=== PATIENT | female | born 1950 | race Caucasian/White ===

== ENCOUNTER 2017-08-02 06:19 | Inpatient (IN) ==
--- NOTE | 2017-08-01 08:27 | Discharge Summary ---
<Sania Dickerson E - Last Filed: 08/01/17 08:24> Date of Encounter: 08/01/17 - Discharge Diagnosis (1) Status post total bilateral knee replacement Priority: Primary Status: Acute (2) Arthritis of both knees Priority: Primary Status: Chronic (3) HTN (hypertension) Priority: Secondary Status: Chronic Qualifiers: Hypertension type: unspecified Qualified Code(s): I10 - Essential (primary ) hypertension (4) Diabetes mellitus Priority: Secondary Status: Chronic Qualifiers: Diabetes mellitus type: type 2 Diabetes mellitus termite control service representative insulin use: with alf use Diabetes mellitus complication status: with neurologic complications Diabetes mellitus complication detail: with unspecified neuropathy Qualified Code(s): E11.40 - Type 2 diabetes mellitus with diabetic neuropathy, unspecified; Z79.4 - regional intermodal truck driver (current) use of insulin; Z79.4 - regional intermodal truck driver (current) use of insulin; Z79.4 - regional intermodal truck driver (current) use of insulin; Z79.4 - residential (current) use of insulin (5) JUAN JOSÉ (obstructive sleep apnea) Priority: Secondary Status: Chronic (6) CAD (coronary artery disease) Priority: Secondary Status: Chronic Qualifiers: Coronary Disease-Associated Artery/Lesion type: unspecified vessel or lesion type Associated angina: angina presence unspecified (7) Anxiety Priority: Secondary Status: Chronic (8) CHF (congestive heart failure) Priority: Secondary Status: Chronic Qualifiers: Heart failure type: unspecified Heart failure chronicity: unspecified Qualified Code(s): I50.9 - Heart failure, unspecified (9) Obesity Priority: Secondary Status: Chronic Qualifiers: Obesity type: unspecified obesity type Obesity classification: unspecified obesity classification Serious obesity comorbidity presence: unspecified whether serious comorbidity present Qualified Code(s): E66.9 - Obesity, unspecified - Hospital Course Hospital course: Ms. Holly is a 67 year old female - Time Spent with Patient Total time spent providing and/or coordinating discharge services: - Discharge Medications Home Medications: Losartan/Hydrochlorothiazide [Hyzaar 100-12.5 Tablet] 1 tab PO DAILY 08/11/15 [ History] Metformin HCl [Metformin HCl ER] 1,000 mg PO BID 08/11/15 [History] Potassium Chloride [K-Tab ER] 20 meq PO Q48H 08/11/15 [History] Aspirin Enteric Coated [Aspirin EC] 325 mg PO BID 10 Days #20 tablet. [Rx] OxyCODONE Immed Rel [Roxicodone 5 MG] 5 mg PO Q6HR PRN 7 Days #28 tablet [Rx] ALPRAZolam [Xanax 0.5 MG Tablet] 0.25 - 0.5 mg PO BID PRN 08/02/17 [History] Aspirin 81 mg PO QPM 08/02/17 [History] Carvedilol 37.5 mg PO BID 08/02/17 [History] Escitalopram [Lexapro] 10 mg PO DAILY 08/02/17 [History] Insulin NPH Hum/Reg Insulin Hm [Novolin 70-30 100 Unit/ml Vial] 28 unit IJ QAM 08/02/17 [History] Insulin NPH Hum/Reg Insulin Hm [Novolin 70-30 100 Unit/ml Vial] 48 units IJ QPM 08/02/17 [History] Mv-Mn/FA/Vit K/Lycop/Lut/Coq10 [Daily Multivitamin Capsule] 1 tab PO DAILY 08/02 [History] Rosuvastatin Calcium [Crestor] 20 mg PO Q48H 08/02/17 [History] Spironolactone [Aldactone] 25 mg PO QAM 08/02/17 [History] Allergies/Adverse Reactions: 3 Allergy/AdvReac Type Severity Reaction Status Date / Time atorvastatin Allergy Cramping Verified 08/02/17 06:40 of the Muscles latex Allergy Rash Verified 08/02/17 06:40 simvastatin Allergy Cramping Verified 08/02/17 06:40 of the Muscles Primary care physician: Robin Easley DO - Patient Status Disposition: Transfer Inpatient Rehab Fac Condition: Good - Discharge Instructions Instructions: Total Knee Replacement (DC), Anemia (GEN) Follow Up With: Robin Easley DO [Primary Care Provider] - <Victor Hugo Alexandra - Last Filed: 08/06/17 19:19> Orders not resulted at time of discharge: Pending orders 08/02/17 01:00 XR knee LT limited 1-2V [XR] Routine XR knee RT limited 1-2V [XR] Routine Hemoglobin and Hematocrit [HEME] Routine Date of Encounter: 08/06/17 Time of Encounter: 19:18 - Discharge Diagnosis (1) Type 2 diabetes mellitus Priority: Secondary Status: Chronic Qualifiers: Diabetes mellitus complication status: with unspecified complications Qualified Code(s): E11.8 - Type 2 diabetes mellitus with unspecified complications; Z79.4 - residential (current) use of insulin; Z79.4 - regional intermodal truck driver ( current) use of insulin; Z79.4 - residential (current) use of insulin; Z79.4 - regional intermodal truck driver (current) use of insulin (2) Hypertension Priority: Secondary Status: Chronic Qualifiers: Hypertension type: essential hypertension (3) Obstructive sleep apnea Priority: Secondary Status: Chronic (4) Arthritis of both knees Priority: Primary Status: Chronic (5) Status post total bilateral knee replacement Priority: Primary Status: Acute (6) CAD (coronary artery disease) Priority: Secondary Status: Chronic Qualifiers: Coronary Disease-Associated Artery/Lesion type: unspecified vessel or lesion type Associated angina: angina presence unspecified Qualified Code(s): I25.10 - Atherosclerotic heart disease of [place] coronary artery without angina pectoris (7) Morbid obesity with BMI of 45.0-49.9, adult Status: Acute (8) Acute combined systolic and diastolic heart failure Priority: Secondary Status: Chronic (9) Diabetic neuropathy Priority: Secondary Status: Chronic Qualifiers: Diabetes mellitus type: other specified (including BHANU) Diabetes mellitus complication detail: with other neurological complication Qualified Code(s): E13.49 - Other specified diabetes mellitus with other diabetic neurological complication (10) Acute blood loss anemia Priority: Primary Status: Acute (11) Acute kidney injury Priority: Primary Status: Acute - Hospital Course Hospital course: Ms. Holly is a 67 year old female Patient status post bilateral total knee replacements. Patient with acute blood loss anemia received 2 units of blood, patient with acute kidney injury hospitalist consult. They received antibiotics and physical therapy and were discharged in stable condition. There will follow-up in the office in 2 weeks. - Time Spent with Patient Total time spent providing and/or coordinating discharge services: Primary care physician: Robin Easley DO - Patient Status Functional capacity at discharge: uses cane/walker Overall status at discharge: patient is progressing back to baseline
--- NOTE | 2017-08-02 06:20 | History & Physical Report ---
Date of Encounter: 08/02/17 Time of Encounter: 06:19 24 Hour HP Update - Instructions Instructions: If the History and Physical is less than 30 days old and was completed prior to A.M. admission and or procedure and has NOT been updated on calendar day of procedure please complete this update prior to performing procedure. - Update Patient reports changes in Medical Condition: No Changes in examination, assessment, or condition: No Changes in Medication: No Preop tests/diagnostics Reviewed: Yes Surgery Remains Indicated: Yes Consent for Planned Operative Procedure(s) Verified: Yes - Pre-Operative Checklist Preoperative Checklist Indicated: No Prophylactic Antibiotic Ordered: Yes Is VTE Prophylaxis Indicated?: Yes
[2017-08-02] MEDS ORDERED: Lidocaine -MPF 1% 2 ML VIAL ID ONE (06:48)
[2017-08-02] MEDS ORDERED: CeFAZolin Syr 2,000MG/20 ML 2,000 MG/20 ML SYRINGE IVPB ONE (06:48)
[2017-08-02] MEDS ORDERED: Ringers Solution, Lactated 1,000 ML IVC SCH (07:00)
[2017-08-02] MEDS ORDERED: Gabapentin 300 MG CAPSULE PO ONE (07:01)
[2017-08-02] MEDS ORDERED: Famotidine 20 MG/2 ML VIAL IVP ONE (07:02)
[2017-08-02] MEDS ORDERED: Ethanol\\Acetic Acid\\Na Ace\\Ben 1,000 ML IRRIG.SOLN IR ONE ×2 (07:09→07:27)
--- NOTE | 2017-08-02 07:13 | Anesthesia Evaluation PreOp ---
Date of Encounter: 08/02/17 Time of Encounter: 07:00 - Past History Planned Operation: Bilateral TKA Cardiac History: HTN, Hyperlipidemia, Other (CAD) Pulmonary History: JUAN JOSÉ Dx (CPAP 19) WOODS RIDER History: Denies Any Significant HX Other Medical History: Diabetes Type II, Other (Morbid Obesity) Anesthesia History: No Prior Anesthetic Complications : No Alcohol Use: none Drug use: none Medications and Allergies Losartan/Hydrochlorothiazide [Hyzaar 100-12.5 Tablet] 1 tab PO DAILY 08/11/15 [ History] Metformin HCl [Metformin HCl ER] 1,000 mg PO BID 08/11/15 [History] Potassium Chloride [K-Tab ER] 20 meq PO Q48H 08/11/15 [History] Aspirin Enteric Coated [Aspirin EC] 325 mg PO BID 10 Days #20 tablet. [Rx] OxyCODONE Immed Rel [Roxicodone 5 MG] 5 mg PO Q6HR PRN 7 Days #28 tablet [Rx] ALPRAZolam [Xanax 0.5 MG Tablet] 0.25 - 0.5 mg PO BID PRN 08/02/17 [History] Aspirin 81 mg PO QPM 08/02/17 [History] Carvedilol [Carvedilol] 37.5 mg PO BID 08/02/17 [History] Escitalopram [Lexapro] 10 mg PO DAILY 08/02/17 [History] Insulin NPH Hum/Reg Insulin Hm [Novolin 70-30 100 Unit/ml Vial] 28 unit IJ QAM 08/02/17 [History] Insulin NPH Hum/Reg Insulin Hm [Novolin 70-30 100 Unit/ml Vial] 48 units IJ QPM 08/02/17 [History] Mv-Mn/FA/Vit K/Lycop/Lut/Coq10 [Daily Multivitamin Capsule] 1 tab PO DAILY 08/02 [History] Rosuvastatin Calcium [Crestor] 20 mg PO Q48H 08/02/17 [History] Spironolactone [Aldactone] 25 mg PO QAM 08/02/17 [History] 3 Allergy/AdvReac Type Severity Reaction Status Date / Time atorvastatin Allergy Cramping Verified 08/02/17 06:40 of the Muscles latex Allergy Rash Verified 08/02/17 06:40 simvastatin Allergy Cramping Verified 08/02/17 06:40 of the Muscles - Meds/Allergy Pre-op Review Medications Reviewed: Yes Allergies Reviewed: Yes Beta Blockers on Current Med List: Yes (Coreg today 0515) Anesthesia Results - Labs Laboratory Tests 07/19/17 07/19/17 11:56 11:56 Hgb 13.0 Hct 40.6 Sodium 139 Potassium 4.4 BUN 20 Creatinine 1.26 H - Imaging EKG: report reviewed (SR Left BBB) Additional studies: EF 55% Anesthesia Exam O2 Sat Height 1.6 m Height 1.6 m Height 1.6 m Weight 117.48 kg Weight 117.48 kg Weight 117.48 kg O2 Sat by Pulse Oximetry 96 O2 Sat by Pulse Oximetry 96 Vital Signs Temp Pulse Resp BP Pulse Ox 98.0 F 65 18 143/77 96 08/02/17 06:43 08/02/17 06:43 08/02/17 06:43 08/02/17 06:43 08/02/17 06:43 Height: 5'3 Weight: 259 lbs NPO (# of Hours): MN Pain Scale: 0 - HEENT Pupil (Motor): Pupils equal, EOMI Mallampati: III Teeth: Normal Oral Opening: Less than or equal to 3 - WOODS RIDER LOC: Oriented WOODS RIDER Motor: Normal RUE, Normal LUE, Normal RLE, Normal LLE, Normal Face WOODS RIDER Sensory: Normal: RUE, LUE, RLE, LLE, Face - Cardiac Rhythm: Regular Murmur: None JVD: No Carotid Bruit: No - Pulmonary Breath Sounds: bilateral Clear Respiratory Effort: Symmetrical Anesthesia Assess/Plan ASA Score: 3 (CAD HTN JUAN JOSÉ MO DM) Modified Caesar Scale for Level of Consciousness: Cooperative, oriented, and tranquil Anesthetic Plan: Regional, MAC Monitoring Plan: Standard Monitors Recovery Plan: PACU (Discussed SAB with Adductor Canal Block, MAC, possible GA, agrees to proceed)
[2017-08-02] MEDS ORDERED: *HR* Propofol 200 MG/20 ML VIAL IVP ONE (07:16)
[2017-08-02] MEDS ORDERED: Dexamethasone 4 MG/ML VIAL ONE ×2 (07:16→07:19)
[2017-08-02] MEDS ORDERED: *HR* Midazolam HCl 2 MG/2 ML VIAL ONE (07:16)
[2017-08-02] MEDS ORDERED: Ondansetron 4 MG/2 ML VIAL ONE (07:16)
[2017-08-02] MEDS ORDERED: Lidocaine -MPF 2% 2 ML VIAL ONE ×3 (07:16→09:27)
[2017-08-02] MEDS ORDERED: *HR* FentaNYL (PF) 100 MCG/2 ML VIAL ONE ×2 (07:16→08:53)
[2017-08-02] MEDS ORDERED: *HR* Succinylcholine 200 MG/10 ML VIAL IVP ONE (07:16)
[2017-08-02] MEDS ORDERED: Propofol 500 MG/50 ML INFUS..BTL ONE (07:19)
[2017-08-02] MEDS ORDERED: ROPIVACAINE HCL/PF 0.5% 30 ML VIAL ONE (07:21)
[2017-08-02] MEDS ORDERED: Morphine Sulfate/PF 5mg/10mL Vial ONE (07:21)
[2017-08-02] MEDS ORDERED: Dexmedetomidine HCl 200 MCG/50 ML MLS IVC ONE (07:22)
[2017-08-02] MEDS ORDERED: *HR* PHENYLEPHRINE 1,000 MCG/10 ML SYRINGE IVP ONE (08:06)
[2017-08-02] MEDS ORDERED: *HR* Promethazine 25 MG/ML VIAL IVP PRN (08:29)
--- NOTE | 2017-08-02 09:34 | Orthopedic Operative Note ---
Date of procedure: 08/02/17 Pre-op diagnosis: Bilateral knee arthritis Post-op diagnosis: same Procedure: Procedure: Bilateral robotic-assisted Total knee replacement Estimated blood loss: 98416 cc Hardware: Metal and polyethylene replacement. Sycamore Femur: 3 Tibia: 4 TS insert: 11 Patella: 36 Exam Under anesthesia: Left knee 9 degree flexion contracture 11 degree varus, right knee 0 degree extension 9 degree varus as calculated by the robot full flexion and no instability Procedural Notes: Grade 4 4 arthritic changes medial compartment patellofemoral joint. Operative procedure: The patient was brought to the operating room and placed on the operating room table. After general anesthesia was administered the operative knee was examined. Findings were noted in the exam under anesthesia. The operative extremity was prepped and draped in sterile surgical fashion. The patient received IV antibiotics prior to skin incision. The next is the dictation for both knees any differences will be highlighted surgery began with the left knee followed the right knee. A standard midline incision was made centered over the patella. The incision was made through the skin and subcutaneous tissue. A medial parapatellar tendon approach was performed. Care was taken to preserve tissue along the medial aspect of the patella. And to protect the patella tendon. The deep MCL was released off the medial tibia. The infra patella fat pad was excised. The patella was everted and cut was made at the level of the insertion of the quadriceps and patella tendon. The patella was sized to a 36 the guide was seated and the lug holes are drilled. Knee was brought into flexion. Patient noted to have grade 4 arthritic changes in both knees medial compartment and patellofemoral joint. Steinmann pins were placed in the tibia and the femur for the tibial and femoral arrays respectively. Checkpoints were also placed in the tibia and the femur for calculation purposes. The knee including the femur and the tibial registered. Osteophytes, ACL and PCL were excised at this point. Extension and flexion were assessed with a valgus stress components were adjusted on the computer to balance the knee. Femoral cuts were made first with robotic assistance, these included the anterior cut posterior cuts chamfer cuts. Tibial cut was then performed with robotic assistance as well. Bone fragments were removed, as well as the medial and lateral meniscus. The size 3 femoral guide was seated box cut was made lug holes are drilled. The size 4 tibial tray was seated and prepared with the fin cutter. Trial reduction with the 11 TS Yvonne revealed extension of 0 degree and 5 degree varus in both knees. full flexion. No varus valgus instability. Trial reduction revealed excellent patella tracking. All trial components were removed all bony surfaces were irrigated. The Tibia was seated followed by the femur, The Yvonne size 11 was seated and secured patella. Patient had similar findings for motion and stability. The knee was closed by the PA. The knee was then irrigated out with 2 L of pulse irrigation. The extensor mechanism was closed with #2 FiberWire suture and #2 PDS suture. The subcutaneous tissue was then irrigated and closed deep with #1 PDS suture superficially with 0 PDS suture and skin was closed with zip tie The patient was then placed in a sterile dressing and a postoperative brace extubated and transferred to recovery room in stable condition. Anesthesia: GETA Surgeon: Victor Hugo Alexandra Was there an radiology assistant present: Yes Umbrella Frame Maker: Virginia Oneil Estimated blood loss (cc): 300 Condition: stable Disposition: PACU
[2017-08-02] MEDS ORDERED: *HR* Morphine 10 MG/ML VIAL ONE (09:43)
--- NOTE | 2017-08-02 09:53 | Anesthesia Procedures ---
Date of Encounter: 08/02/17 Time of Encounter: 10:10 Procedures: Anesthesia - Nerve Block Procedure Date: 08/02/17 Time: 10:10 Allergies/Adv Reactions: atorvastatin, ltex,simvastatin Pre-op Diagnosis: bilateral knee arthritis Surgical Procedure: bilateral knee replacement Checklist: Correct Patient Identifier, Correct procedure, History checked Correct side: Right (bilateral knees -CANNOT SELECT BILATERAL COMPUTER WONT ALLOW) Blood Thinner: No Monitor Applied: EKG, BP, Pulse Oximetry Supplemental Oxygen via Nasal Cannula (L/min): 2 Sedation: Versed (mg): 2 Sedation: Fentanyl (mcg): 100 Indication: Post Op Analgesia Pre-op Neuro Deficits: No Block Type: Other (ADDUCTORS BILATERALLY ) Catheter placed: No Sterile Technique: Yes Ultrasound used: Yes Anatomy identified: Yes Visual spread of Local: Yes Neuro Stimulation: No Blood on Needle Aspiration: No Smooth Injection of Local: Yes Pain with Injection of Local: No Prep: Chlorhexadine Needle: 21 x 100 mm Stimuplex Local: Ropivacaine (ROPI0.5% BILATERALLY ADDUCTOR CANALS -TOTAL 60ML ) Volume (cc): 60 Number of Attempts: 1 Complications: None/effective block Vitals: Vital Signs - Last 8 Hours Temp Pulse Resp BP Pulse Ox 08/02/17 07:28 68 18 186/98 100 08/02/17 06:50 98.0 F 65 18 143/77 96 08/02/17 06:43 98.0 F 65 18 143/77 96 Intake and Output 08/01/17 08/02/17 08/02/17 23:59 07:59 15:59 Other: Weight 117.48 kg Blood Glucose* 76 Patient Weight 08/02/17 23:59 Weight 117.48 kg Comments: PER DR. PEREZ REQUEST
[2017-08-02 10:52] LABS: Hematocrit 34.7 % (35.3-44.9); Hemoglobin 11.2 g/dL (11.5-15.4)
[2017-08-02] MEDS: *HR* HYDROmorphone (PF) 1 MG/ML SYRINGE IVP PRN ×4 (10:54→11:26)
--- NOTE | 2017-08-02 11:42 | Anesthesia Evaluation Post Op ---
Date of Encounter: 08/02/17 Time of Encounter: 11:41 - Vital Signs Vital Signs: Vital Signs/O2 Sat, Most Current Temp Pulse Resp BP Pulse Ox 97.0 F L 69 18 120/86 94 08/02/17 11:23 08/02/17 11:33 08/02/17 11:33 08/02/17 11:33 08/02/17 11:33 - Lungs Lungs: Clear Ascult./Percussion - Airway Airway: Non-obstructed - Cardiovascular Regular Rate - Mental Status Mental Status: Alert & Oriented, Answers Appropriately - Pain Pain Scale: 0 Pain Scale used: Numeric (1 - 10) - Nausea Vomiting Nausea Vomiting: Not Present - Hydration Hydration: Ice chips, Has not voided - Discharge PostOp Status: Transfer Patient to floor
[2017-08-02] MEDS ORDERED: D5% in Water 1,000 ML IVC PRN (11:48)
[2017-08-02] MEDS ORDERED: Temazepam 15 MG CAPSULE PO PRN (11:48)
[2017-08-02] MEDS ORDERED: Dextrose Gel 15 GM/37.5 ML TUBE PO PRN ×2 (11:48)
[2017-08-02] MEDS ORDERED: NON-FORMULARY MEDICATION 1 EACH EACH (Losartan/Hydrochlorothiazide [Hyzaar 100-12.5 Tablet PO SCH (11:48)
[2017-08-02] MEDS ORDERED: *HR* Dextrose 50 % in Water (Syg) 50 ML SYRINGE IVP PRN (11:48)
[2017-08-02] MEDS ORDERED: ALPRAZolam 0.5 MG TABLET PO PRN (11:48)
[2017-08-02] MEDS ORDERED: Sennosides 8.6 MG TABLET PO PRN (11:48)
[2017-08-02] MEDS ORDERED: Naloxone 0.4 MG/ML INJ IVP PRN (11:48)
[2017-08-02] MEDS ORDERED: Ondansetron 4 MG/2 ML VIAL IVP PRN (11:48)
[2017-08-02] MEDS ORDERED: MOM Conc 10 ML UD.LIQ PO PRN (11:48)
[2017-08-02] MEDS: Spironolactone 25 MG TABLET PO SCH (13:34)
[2017-08-02] MEDS: Insulin NPH/REG 70/30 100 UNIT/ML (x5UNIT) SQ SCH ×2 (13:35→17:22)
[2017-08-02] MEDS: *HR* Metformin 500 MG TABLET PO SCH ×2 (13:36→21:43)
[2017-08-02] MEDS: Insulin LISPRO 300 UNITS/3 ML VIAL SQ SCH ×3 (13:36→21:43)
[2017-08-02] MEDS: Multivit/Ca/Min/Fe/FA 1 TAB TABLET PO SCH (13:36)
[2017-08-02] MEDS: hydroCHLOROthiazide 25 MG TABLET PO SCH (13:36)
[2017-08-02] MEDS: *HR* Enoxaparin 30 MG/0.3 ML SYRINGE SQ SCH (16:06)
[2017-08-02] MEDS: ceFAZolin 2,000 MG in 0.9 % Sodium Chloride 100 ML IVPB SCH (16:06)
[2017-08-02] MEDS: *HR* OxyCODONE/APAP 5/325 TABLET PO PRN (16:06)
[2017-08-02] MEDS: Aspirin 81 MG TAB.CHEW PO SCH (16:06)
[2017-08-02] MEDS ORDERED: *HR* Enoxaparin 30 MG/0.3 ML SYRINGE SQ SCH (18:00)
[2017-08-02] MEDS: traMADol 50 MG TABLET PO PRN (18:22)
[2017-08-02] MEDS: Ringers Solution, Lactated 1,000 ML IVC SCH (18:38)
[2017-08-02] MEDS: *HR* OxyCODONE Immed Rel 5 MG TABLET PO PRN (21:42)
[2017-08-03] MEDS: ceFAZolin 2,000 MG in 0.9 % Sodium Chloride 100 ML IVPB SCH (01:02)
[2017-08-03] MEDS: *HR* OxyCODONE/APAP 5/325 TABLET PO PRN ×3 (01:02→13:58)
[2017-08-03 01:49] LABS: Hematocrit 31.9 % (35.3-44.9); Hemoglobin 10.2 g/dL (11.5-15.4)
[2017-08-03] MEDS: Ringers Solution, Lactated 1,000 ML IVC SCH (02:00)
[2017-08-03 02:08] LABS: Calcium 8.7 mg/dL (8.6-10.3); Potassium 5.5 mEq/L (3.5-5.1)
[2017-08-03] MEDS: *HR* Enoxaparin 30 MG/0.3 ML SYRINGE SQ SCH ×2 (05:02→17:06)
--- NOTE | 2017-08-03 06:20 | Orthopedics Progress Note ---
Date of Encounter: 08/03/17 Time of Encounter: 06:19 - Assessment and Plan (1) Type 2 diabetes mellitus Current Visit: No Status: Chronic Qualifiers: Diabetes mellitus complication status: with unspecified complications Qualified Code(s): E11.8 - Type 2 diabetes mellitus with unspecified complications; Z79.4 - intermediate school teacher (current) use of insulin; Z79.4 - intermediate school teacher ( current) use of insulin; Z79.4 - intermediate school teacher (current) use of insulin; Z79.4 - intermediate school teacher (current) use of insulin (2) Obstructive sleep apnea Current Visit: No Status: Chronic (3) Arthritis of both knees Current Visit: No Status: Chronic (4) Status post total bilateral knee replacement Current Visit: No Status: Acute (5) CAD (coronary artery disease) Current Visit: No Status: Chronic Qualifiers: Coronary Disease-Associated Artery/Lesion type: unspecified vessel or lesion type Associated angina: angina presence unspecified Qualified Code(s): I25.10 - Atherosclerotic heart disease of [place] coronary artery without angina pectoris (6) Morbid obesity with BMI of 45.0-49.9, adult Current Visit: Yes Status: Acute (7) Acute combined systolic and diastolic heart failure Current Visit: No Status: Chronic (8) Diabetic neuropathy Current Visit: No Status: Chronic Qualifiers: Diabetes mellitus type: other specified (including BHANU) Diabetes mellitus complication detail: with other neurological complication Qualified Code(s): E13.49 - Other specified diabetes mellitus with other diabetic neurological complication Subjective Interval history: Patient was seen this morning doing well without complaints. Afebrile vital signs stable. Operative extremity: Neurovascularly intact Dressing clean dry and intact Calves nontender Assessment and plan: Continue with postoperative care Hematocrit 31 Objective Vital signs: Vital Signs Temp Pulse Resp BP Pulse Ox 08/03/17 04:58 97.6 F 72 20 119/54 96 08/02/17 23:53 97.9 F 74 16 131/64 100 08/02/17 18:49 97.8 F 75 16 108/65 98 08/02/17 15:09 97.2 F L 71 16 112/69 99 08/02/17 13:52 97.4 F L 67 16 120/66 97 08/02/17 12:54 97.2 F L 72 16 128/73 96 08/02/17 12:28 97.5 F L 74 16 127/71 93 08/02/17 11:48 97.7 F 72 15 138/74 95 08/02/17 11:43 97.0 F L 64 18 120/84 94 08/02/17 11:33 69 18 120/86 94 08/02/17 11:23 97.0 F L 66 18 101/91 98 08/02/17 11:13 61 18 118/69 98 08/02/17 11:03 63 16 116/67 97 08/02/17 10:53 97.3 F L 62 16 109/70 98 08/02/17 10:43 60 16 112/71 96 08/02/17 10:33 63 16 102/64 100 08/02/17 10:23 97.0 F L 61 18 118/64 98 08/02/17 07:28 68 18 186/98 100 08/02/17 06:50 98.0 F 65 18 143/77 96 08/02/17 06:43 98.0 F 65 18 143/77 96 Intake and Output 08/02/17 08/02/17 08/03/17 15:59 23:59 07:59 Intake Total 0 / 0 100 / 100 Output Total 300 / 300 200 / 200 100 / 100 Balance -300 / -300 -100 / -100 -100 / -100 Intake: IV Fluids 100 / 100 Ancef 2,000 MG In 0.9 % Sodium 100 / 100 Chloride 100 ML @ 200 mls/hr IVPB Q8H [facility] Rx#:[id number] Oral 0 / 0 0 / 0 Output: Urine 0 / 0 200 / 200 100 / 100 Estimated Blood Loss 300 / 300 Other: # Voids 1 Blood Glucose* 109 243 - Labs CBC & BMP: 08/03/17 01:27 08/03/17 01:27 Labs: Abnormal lab results Hgb 10.2 g/dL (11.5-15.4) L 08/03/17 01:27 Hct 31.9 % (35.3-44.9) L 08/03/17 01:27 Sodium 135 mEq/L (136-145) L 08/03/17 01:27 Potassium 5.5 mEq/L (3.5-5.1) H 08/03/17 01:27 Carbon Dioxide 21 mEq/L (23-29) L 08/03/17 01:27 BUN 39 mg/dL (8-23) H 08/03/17 01:27 Creatinine 1.66 mg/dL (0.60-1.20) H 08/03/17 01:27 Est GFR ( Amer) 37 (> 60) L 08/03/17 01:27 Est GFR (Non-Af Amer) 31 (> 60) L 08/03/17 01:27 Glucose 206 mg/dL (70-105) H 08/03/17 01:27 POC Glucose 243 mg/dL (70-99) H 08/02/17 20:20 - VTE Documentation of Mechanical Device: Intermittent pneumatic compression device Consult Discharge Plan - Plan Referrals: Robin Easley DO [Primary Care Provider] -
[2017-08-03] MEDS: *HR* Metformin 500 MG TABLET PO SCH ×2 (08:15→19:49)
[2017-08-03] MEDS: traMADol 50 MG TABLET PO PRN (08:15)
[2017-08-03] MEDS: Spironolactone 25 MG TABLET PO SCH (08:16)
[2017-08-03] MEDS: Multivit/Ca/Min/Fe/FA 1 TAB TABLET PO SCH (08:16)
[2017-08-03] MEDS: hydroCHLOROthiazide 25 MG TABLET PO SCH (08:16)
[2017-08-03] MEDS: Insulin LISPRO 300 UNITS/3 ML VIAL SQ SCH ×4 (08:23→20:08)
[2017-08-03] MEDS: Insulin NPH/REG 70/30 100 UNIT/ML (x5UNIT) SQ SCH ×2 (08:23→17:06)
[2017-08-03] MEDS: Aspirin 81 MG TAB.CHEW PO SCH (17:06)
[2017-08-03] MEDS ORDERED: Acetaminophen IV 1,000 MG/100 ML INFUS..BTL IVPB ONE (19:02)
[2017-08-03] MEDS: *HR* OxyCODONE Immed Rel 5 MG TABLET PO PRN (19:48)
[2017-08-04 01:23] LABS: Hemoglobin 8.3 g/dL (11.5-15.4)
[2017-08-04 01:41] LABS: Calcium 8.7 mg/dL (8.6-10.3); Potassium 4.3 mEq/L (3.5-5.1)
[2017-08-04] MEDS: *HR* Enoxaparin 30 MG/0.3 ML SYRINGE SQ SCH (05:37)
[2017-08-04] MEDS ORDERED: Furosemide 20 MG/2 ML VIAL IVP ONE ×3 (05:51→21:35)
[2017-08-04] MEDS: *HR* OxyCODONE Immed Rel 5 MG TABLET PO PRN ×3 (06:03→17:48)
[2017-08-04] MEDS: Insulin LISPRO 300 UNITS/3 ML VIAL SQ SCH ×4 (07:39→21:17)
--- NOTE | 2017-08-04 08:05 | Orthopedics Progress Note ---
Date of Encounter: 08/04/17 Time of Encounter: 08:03 - Assessment and Plan (1) Type 2 diabetes mellitus Current Visit: No Status: Chronic Qualifiers: Diabetes mellitus complication status: with unspecified complications Qualified Code(s): E11.8 - Type 2 diabetes mellitus with unspecified complications; Z79.4 - termite exterminator helper (current) use of insulin; Z79.4 - termite exterminator helper ( current) use of insulin; Z79.4 - termite exterminator helper (current) use of insulin; Z79.4 - termite exterminator helper (current) use of insulin (2) Obstructive sleep apnea Current Visit: No Status: Chronic (3) Arthritis of both knees Current Visit: No Status: Chronic (4) Status post total bilateral knee replacement Current Visit: No Status: Acute (5) CAD (coronary artery disease) Current Visit: No Status: Chronic Qualifiers: Coronary Disease-Associated Artery/Lesion type: unspecified vessel or lesion type Associated angina: angina presence unspecified Qualified Code(s): I25.10 - Atherosclerotic heart disease of [place] coronary artery without angina pectoris (6) Morbid obesity with BMI of 45.0-49.9, adult Current Visit: Yes Status: Acute (7) Acute combined systolic and diastolic heart failure Current Visit: No Status: Chronic (8) Diabetic neuropathy Current Visit: No Status: Chronic Qualifiers: Diabetes mellitus type: other specified (including BHANU) Diabetes mellitus complication detail: with other neurological complication Qualified Code(s): E13.49 - Other specified diabetes mellitus with other diabetic neurological complication (9) Acute blood loss anemia Current Visit: Yes Status: Acute (10) Acute kidney injury Current Visit: Yes Status: Acute Subjective Interval history: Patient was seen this morning doing well without complaints. Afebrile vital signs stable. Operative extremity: Neurovascularly intact Dressing clean dry and intact Calves nontender Assessment and plan: Continue with postoperative care Hematocrit 25, creatinine 2.39 transfuse 2 units consult hospitalist. For kidney issues Objective Vital signs: Vital Signs Temp Pulse Resp BP Pulse Ox 08/04/17 06:52 98 F 87 18 119/67 98 08/04/17 04:16 98.0 F 83 18 115/70 96 08/03/17 23:14 97.9 F 86 18 104/64 94 08/03/17 18:59 98.5 F 78 16 111/66 95 08/03/17 15:39 98.3 F 74 20 99/61 93 08/03/17 11:10 97.9 F 73 18 107/66 93 Intake and Output 08/03/17 08/04/17 08/04/17 23:59 07:59 15:59 Other: # Voids 1 Blood Glucose* 163 106 - Labs CBC & BMP: 08/04/17 00:54 08/04/17 00:54 Labs: Abnormal lab results Hgb 8.3 g/dL (11.5-15.4) L D 08/04/17 00:54 Hct 26.0 % (35.3-44.9) L 08/04/17 00:54 Sodium 135 mEq/L (136-145) L 08/04/17 00:54 BUN 58 mg/dL (8-23) H 08/04/17 00:54 Creatinine 2.39 mg/dL (0.60-1.20) H 08/04/17 00:54 Est GFR ( Amer) 24 (> 60) L 08/04/17 00:54 Est GFR (Non-Af Amer) 20 (> 60) L 08/04/17 00:54 POC Glucose 163 mg/dL (70-99) H 08/03/17 20:07 - VTE Documentation of Mechanical Device: Venous foot pump, device Consult Discharge Plan - Plan Referrals: Robin Easley DO [Primary Care Provider] -
[2017-08-04] MEDS: Multivit/Ca/Min/Fe/FA 1 TAB TABLET PO SCH (08:44)
[2017-08-04] MEDS: *HR* Metformin 500 MG TABLET PO SCH (08:44)
[2017-08-04] MEDS: Spironolactone 25 MG TABLET PO SCH (08:44)
[2017-08-04] MEDS: Insulin NPH/REG 70/30 100 UNIT/ML (x5UNIT) SQ SCH ×2 (08:45→16:21)
[2017-08-04] MEDS: hydroCHLOROthiazide 25 MG TABLET PO SCH (08:45)
[2017-08-04] MEDS ORDERED: 0.9 % Sodium Chloride 250 ML ONE ×2 (09:22→15:49)
[2017-08-04 15:21] LABS: Calcium 8.8 mg/dL (8.6-10.3); Potassium 4.9 mEq/L (3.5-5.1)
[2017-08-04] MEDS: Aspirin 81 MG TAB.CHEW PO SCH (16:21)
--- NOTE | 2017-08-04 20:01 | Internal Medicine Consult Note ---
<Donell Wilburn - Last Filed: 08/04/17 19:56> Date of Encounter: 08/04/17 Time of Encounter: 19:57 - Assessment and plan (1) Acute blood loss anemia Current Visit: Yes Status: Acute Assessment and plan: Acute blood loss anemia S/P bilateral total knee replacements Today's H&H 8.3/26.0. Receiving 2 units packed red cells now CBC D in the morning Okay to discharge if hemodynamically stable and hemoglobin and hematocrit stable (2) Acute kidney injury Current Visit: Yes Status: Acute Assessment and plan: The patient developed an acute kidney injury status post bilateral total knee replacement on 08/02/17 She has had difficulty voiding following the surgery. Hospitalist services consulted to help manage care due acute kidney injury. Serum creatinine has improved following catheterization, patient reports that she has urinated since being catheterized Continue monitor renal function, BMP in the a.m. Avoid nephrotoxins Continue IV fluid Okay to discharge if serum creatinine continues to improve Continue to hold medications upon discharge, recheck serum creatinine while at rehabilitation facility, when serum creatinine returns to baseline okay to restart diuretics and Cozaar - Time Spent With Patient Total time spent is greater than 50% in coordination of care (as documented) at patient's floor/unit and/or counseling patient: less than 15 minutes Internal Medicine - CN: HPI - Data of Consult Patient: new to practice (t) Consult date: 08/04/17 Requesting Physician: Victor Hugo Alexandra MD - Consult Narrative Reason for consult: WINTER History of present illness: Ms. Holly is a 67 year old female here for total bilateral knee replacement. During her stay she had difficulty voiding and developed an WINTER. Additionally, she is also noted to have anemia postoperatively. Hospitalist services have been consult to assist with WINTER, and anemia and to determine when to restart nephrotoxic medications. Past Med Surg Social Fam HX - Past Medical History Medical history: CHF, hypertension Psychiatric history: no psych history - Social History Smoking Status: Never smoker Smokeless Tobacco Status: No Alcohol use: none Drug use: none - Family History Father Living Status: Hx Family Cardiac Disorders: Yes (HTN) - Cardiovascular Cardiovascular ROS IM: no chest pain, no dyspnea, no dyspnea on exertion, no edema - Respiratory Respiratory: no dyspnea, no dyspnea on exertion - Musculoskeletal Musculoskeletal ROS IM: limited range of motion (Status post bilateral total knee replacements), muscle weakness, no numbness, no tingling Internal Medicine - CN: Meds Losartan/Hydrochlorothiazide [Hyzaar 100-12.5 Tablet] 1 tab PO DAILY 08/11/15 [ History] Metformin HCl [Metformin HCl ER] 1,000 mg PO BID 08/11/15 [History] Potassium Chloride [K-Tab ER] 20 meq PO Q48H 08/11/15 [History] Aspirin Enteric Coated [Aspirin EC] 325 mg PO BID 10 Days #20 tablet. [Rx] OxyCODONE Immed Rel [Roxicodone 5 MG] 5 mg PO Q6HR PRN 7 Days #28 tablet [Rx] ALPRAZolam [Xanax 0.5 MG Tablet] 0.25 - 0.5 mg PO BID PRN 08/02/17 [History] Aspirin 81 mg PO QPM 08/02/17 [History] Carvedilol 37.5 mg PO BID 08/02/17 [History] Escitalopram [Lexapro] 10 mg PO DAILY 08/02/17 [History] Insulin NPH Hum/Reg Insulin Hm [Novolin 70-30 100 Unit/ml Vial] 28 unit IJ QAM 08/02/17 [History] Insulin NPH Hum/Reg Insulin Hm [Novolin 70-30 100 Unit/ml Vial] 48 units IJ QPM 08/02/17 [History] Mv-Mn/FA/Vit K/Lycop/Lut/Coq10 [Daily Multivitamin Capsule] 1 tab PO DAILY 08/02 [History] Rosuvastatin Calcium [Crestor] 20 mg PO Q48H 08/02/17 [History] Spironolactone [Aldactone] 25 mg PO QAM 08/02/17 [History] 3 Allergy/AdvReac Type Severity Reaction Status Date / Time atorvastatin Allergy Cramping Verified 08/02/17 06:40 of the Muscles latex Allergy Rash Verified 08/02/17 06:40 simvastatin Allergy Cramping Verified 08/02/17 06:40 of the Muscles Internal Medicine - CN: Exam - Constitutional Vitals: Temp Pulse Resp BP Pulse Ox 98.3 F 80 16 131/70 94 08/04/17 15:59 08/04/17 15:59 08/04/17 15:59 08/04/17 15:59 08/04/17 15:59 General appearance IM: Present: cooperative, A&O X 3, no acute distress, answers questions appropriately - Respiratory Respiratory exam: Present: CTAB - Cardiovascular Cardiovascular exam IM: Present: RRR, +S1, +S2, systolic murmur - Expanded Cardiovascular Exam Type of murmur: Present: systolic Intensity: 1/6 - GI/Abdominal GI/Abdominal exam IM: Present: normal bowel sounds - Extremities Exam Extremities exam IM: Present: normal capillary refill, radial pulses palpable and symmetrical. Absent: calf tenderness, tenderness Internal Medicine - CN: Reslt - Labs CBC & Chem 7: 08/04/17 00:54 08/04/17 14:39 Labs: Short CBC 08/04/17 Range/Units 00:54 Hgb 8.3 L D (11.5-15.4) g/dL Hct 26.0 L (35.3-44.9) % BMP 08/04/17 08/04/17 00:54 14:39 Sodium 135 L 136 Potassium 4.3 4.9 Chloride 106 107 Carbon Dioxide 23 22 L BUN 58 H 57 H Creatinine 2.39 H 1.74 H Glucose 96 114 H Calcium 8.7 8.8 Consult Discharge Plan - Plan Referrals: Robin Easley DO [Primary Care Provider] - <Dave Lewis - Last Filed: 08/04/17 22:27> Date of Encounter: 08/04/17 - Assessment and plan (1) Acute blood loss anemia Current Visit: Yes Status: Acute (2) Acute kidney injury Current Visit: Yes Status: Acute - Time Spent With Patient Total time spent is greater than 50% in coordination of care (as documented) at patient's floor/unit and/or counseling patient: Internal Medicine - CN: HPI - Data of Consult Requesting Physician: Victor Hugo Alexandra MD - Consult Narrative History of present illness: Ms. Holly is a 67 year old female Internal Medicine - CN: Exam - Constitutional Vitals: Temp Pulse Resp BP Pulse Ox 98.6 F 84 17 125/73 90 08/04/17 20:01 08/04/17 20:01 08/04/17 21:50 08/04/17 20:01 08/04/17 21:50 Internal Medicine - CN: Reslt - Labs CBC & Chem 7: 04/18/18 00:54 08/04/17 14:39 Labs: Short CBC 08/04/17 Range/Units 00:54 Hgb 8.3 L D (11.5-15.4) g/dL Hct 26.0 L (35.3-44.9) % BMP 08/04/17 08/04/17 00:54 14:39 Sodium 135 L 136 Potassium 4.3 4.9 Chloride 106 107 Carbon Dioxide 23 22 L BUN 58 H 57 H Creatinine 2.39 H 1.74 H Glucose 96 114 H Calcium 8.7 8.8 - Attending Attestation Agree with plan as discussed and documented by RUKHSANA Wilburn
[2017-08-05 01:30] LABS: Basophils % 0.1 %; Eosinophils % 0.3 %; Hematocrit 30.7 % (35.3-44.9); Immature Granulocytes % 0.3 % (0-4); Lymphocytes # 1.4 K/mcL (0.6-4.6); Lymphocytes % 9.8 %; Mean Corpuscular HGB Conc 32.6 g/dL (31.6-35.5); Mean Corpuscular Hemoglobin 29.9 pg (28.0-33.3); Mean Corpuscular Volume 91.9 fL (83.0-100.0); Mean Platelet Volume 9.7 fL (9.4-12.4); Monocytes # 1.2 K/mcL (0.0-1.3); Monocytes % 8.7 %; Neutrophils # 11.2 K/mcL (1.6-8.9); Platelet Count 200 K/mcL (140-400); Red Blood Count 3.34 M/mcL (3.82-4.97); Red Cell Distribution Width 14.1 % (11.5-14.5); Segmented Neutrophils % 80.8 %
[2017-08-05 01:51] LABS: Calcium 8.9 mg/dL (8.6-10.3); Potassium 4.8 mEq/L (3.5-5.1)
[2017-08-05] MEDS: *HR* OxyCODONE Immed Rel 5 MG TABLET PO PRN ×2 (03:15→11:38)
[2017-08-05] MEDS: Ringers Solution, Lactated 1,000 ML IVC SCH ×2 (07:43→07:44)
--- NOTE | 2017-08-05 08:06 | Event Note ---
Date of Encounter: 08/03/17 Time of Encounter: 12:00 Delayed entry PCR- POD#1 B/L TKR 08/02/17 [facility] PCR - Patient seen at bedside. Labwork and medications reviewed. Slight bump in SCr from baseline (1.26) now 1.66. Pain control: Inadequate - will add Lidoderm patch, patient admits to left bothering her more than right knee with burning sensation. Will add Cyclobenzaprine. Participating in PT. All questions and concerns addressed. Educated on use of incentive spirometer, ambulation, and hydration. Patient educated on post-operative restrictions and care. Addressed: Will continue to monitor labwork - encouraged hydration and participation with therapy. D/C plan: ECF
--- NOTE | 2017-08-05 08:08 | Event Note ---
Date of Encounter: 08/04/17 Time of Encounter: 12:30 Delayed entry PCR- POD#2 B/L TKR 08/02/17 [facility] PCR - Patient seen at bedside. Labwork and medications reviewed. Large rise in SCr from baseline (1.26), 1.66 on 08/03 to 2.39 (08/04). Patient to receive 2 units blood which should help with SCr however will stop nephrotoxic medications for now and encourage conservative fluids secondary to h/o CHF and consult hospitalist services. Pain control: Adequate. Participating in PT. All questions and concerns addressed. Educated on use of incentive spirometer, ambulation, and hydration. Patient educated on post-operative restrictions and care. Addressed: Will continue to monitor labwork - encouraged hydration and participation with therapy. D/C plan: ECF - once medically stable
[2017-08-05] MEDS: Multivit/Ca/Min/Fe/FA 1 TAB TABLET PO SCH (08:49)
[2017-08-05] MEDS: Insulin LISPRO 300 UNITS/3 ML VIAL SQ SCH ×2 (08:49→12:11)
[2017-08-05] MEDS: *HR* OxyCODONE/APAP 5/325 TABLET PO PRN (08:52)
[2017-08-05] MEDS: Insulin NPH/REG 70/30 100 UNIT/ML (x5UNIT) SQ SCH (08:52)
[2017-08-05] MEDS ORDERED: *HR* Enoxaparin 30 MG/0.3 ML SYRINGE SQ SCH (09:00)
[2017-08-05 11:46] VITALS: BP 114/68
--- NOTE | 2017-08-05 12:13 | Orthopedics Progress Note ---
Date of Encounter: 08/05/17 Time of Encounter: 08:00 - Assessment and Plan (1) Status post total bilateral knee replacement Status: Acute Patient was seen this morning, doing well without complaints. Hospitalist consult - renal lab improved. Afebrile, vital signs stable. Operative extremity: Neurovascularly intact Dressing clean dry and intact, no saturation. Tobi in place. Calves nontender Assessment and plan: Continue with postoperative care, patient plan to discharge once cleared from medical team Hematocrit 30.7, Hgb 10 - asymptomatic Subjective Principal diagnosis: Bilateral TKR Interval history: Patient was seen this morning, doing well without complaints. Hospitalist consult - renal lab improved. Afebrile, vital signs stable. Operative extremity: Neurovascularly intact Dressing clean dry and intact, no saturation. Tobi in place. Calves nontender Assessment and plan: Continue with postoperative care, patient plan to discharge once cleared from medical team Hematocrit 30.7, Hgb 10 - asymptomatic Objective Vital signs: Vital Signs Temp Pulse Resp BP Pulse Ox 08/05/17 10:20 98.5 F 73 16 114/68 97 08/05/17 09:09 95 08/05/17 07:00 98.8 F 79 16 144/78 95 08/05/17 04:29 99.2 F 77 17 147/68 94 08/05/17 00:39 99.4 F 87 17 133/73 95 08/04/17 21:50 17 90 08/04/17 20:01 98.6 F 84 125/73 90 08/04/17 20:00 99.1 F 82 20 136/76 92 08/04/17 15:59 98.3 F 80 16 131/70 94 08/04/17 15:53 98.0 F 78 16 132/72 94 08/04/17 15:30 98.1 F 80 115/69 92 08/04/17 13:18 98.1 F 74 16 124/70 99 Intake and Output 08/04/17 08/05/17 08/05/17 23:59 07:59 15:59 Intake Total 320 / 320 Output Total 200 / 200 Balance 320 / 320 -200 / -200 Intake: Blood Product 320 / 320 Rbcs Leuko Poor As-1 Unit 320 / 320 [id number] Output: Urine 200 / 200 Other: # Voids 1 Weight 118.4 kg Blood Glucose* 171 161 168 Patient Weight 08/05/17 23:59 Weight 118.4 kg - Labs CBC & BMP: 08/05/17 01:04 08/05/17 01:04 Labs: Abnormal lab results WBC 13.8 K/mcL (4.3-11.1) H 08/05/17 01:04 RBC 3.34 M/mcL (3.82-4.97) L 08/05/17 01:04 Hgb 10.0 g/dL (11.5-15.4) L D 08/05/17 01:04 Hct 30.7 % (35.3-44.9) L 08/05/17 01:04 Neutrophils # 11.2 K/mcL (1.6-8.9) H 08/05/17 01:04 Carbon Dioxide 20 mEq/L (23-29) L 08/05/17 01:04 BUN 57 mg/dL (8-23) H 08/05/17 01:04 Creatinine 1.42 mg/dL (0.60-1.20) H 08/05/17 01:04 Est GFR ( Amer) 44 (> 60) L 08/05/17 01:04 Est GFR (Non-Af Amer) 37 (> 60) L 08/05/17 01:04 BUN/Creatinine Ratio 40 (6-26) H 08/05/17 01:04 Glucose 133 mg/dL (70-105) H 08/05/17 01:04 POC Glucose 161 mg/dL (70-99) H 08/05/17 07:47 - VTE Documentation of Mechanical Device: Intermittent pneumatic compression device Consult Discharge Plan - Plan Instructions: Total Knee Replacement (DC), Anemia (GEN) Referrals: Robin Easley DO [Primary Care Provider] -
--- NOTE | 2017-08-05 12:16 | Event Note ---
Date of Encounter: 08/05/17 Time of Encounter: 12:40 PCR- POD#3 B/L TKR 08/02/17 [facility] PCR - Patient seen at bedside. Labwork and medications reviewed. Large rise in SCr from baseline (1.26), 1.66 on 08/03 to 2.39 (08/04) - 08/05 nearly back to baseline. Patient received 2 units blood on 08/04 and received urinary catheterization which has nearly resolved her WINTER. Hospitalist services were consulted yesterday - their input is much appreciated. Pain control: Adequate. Participating in PT. All questions and concerns addressed. Educated on use of incentive spirometer, ambulation, and hydration. Patient educated on post-operative restrictions and care. Addressed: Will continue to monitor labwork - encouraged hydration and participation with therapy. D/C plan: ECF - today - now medically stable - if auth obtained
--- NOTE | 2017-08-05 12:18 | Physician Discharge Referral ---
ExtendedCare Referral Info Transfer To: [facility] Provider in Charge: Dr Alexandra - Diagnosis (1) Status post total bilateral knee replacement Priority: Primary Status: Acute (2) Arthritis of both knees Priority: Primary Status: Chronic (3) HTN (hypertension) Priority: Secondary Status: Chronic (4) Diabetes mellitus Priority: Secondary Status: Chronic (5) JUAN JOSÉ (obstructive sleep apnea) Priority: Secondary Status: Chronic (6) CAD (coronary artery disease) Priority: Secondary Status: Chronic (7) Anxiety Priority: Secondary Status: Chronic (8) CHF (congestive heart failure) Priority: Secondary Status: Chronic (9) Obesity Priority: Secondary Status: Chronic (10) Acute blood loss anemia Priority: Secondary Status: Acute (11) Acute kidney injury Priority: Secondary (Improving upon discharge) Status: Acute Expected Duration of Placement: less than 30 days Prognosis: Good Aware of Diagnosis: Patient Aware of Prognosis: Patient - Transfer Medications Home Medications: Losartan/Hydrochlorothiazide [Hyzaar 100-12.5 Tablet] 1 tab PO DAILY 08/11/15 [ History] Metformin HCl [Metformin HCl ER] 1,000 mg PO BID 08/11/15 [History] Potassium Chloride [K-Tab ER] 20 meq PO Q48H 08/11/15 [History] Aspirin Enteric Coated [Aspirin EC] 325 mg PO BID 10 Days #20 tablet. [Rx] OxyCODONE Immed Rel [Roxicodone 5 MG] 5 mg PO Q6HR PRN 7 Days #28 tablet [Rx] ALPRAZolam [Xanax 0.5 MG Tablet] 0.25 - 0.5 mg PO BID PRN 08/02/17 [History] Aspirin 81 mg PO QPM 08/02/17 [History] Carvedilol 37.5 mg PO BID 08/02/17 [History] Escitalopram [Lexapro] 10 mg PO DAILY 08/02/17 [History] Insulin NPH Hum/Reg Insulin Hm [Novolin 70-30 100 Unit/ml Vial] 28 unit IJ QAM 08/02/17 [History] Insulin NPH Hum/Reg Insulin Hm [Novolin 70-30 100 Unit/ml Vial] 48 units IJ QPM 08/02/17 [History] Mv-Mn/FA/Vit K/Lycop/Lut/Coq10 [Daily Multivitamin Capsule] 1 tab PO DAILY 08/02 [History] Rosuvastatin Calcium [Crestor] 20 mg PO Q48H 08/02/17 [History] Spironolactone [Aldactone] 25 mg PO QAM 08/02/17 [History] Allergies/Adverse Reactions: 3 Allergy/AdvReac Type Severity Reaction Status Date / Time atorvastatin Allergy Cramping Verified 08/02/17 06:40 of the Muscles latex Allergy Rash Verified 08/02/17 06:40 simvastatin Allergy Cramping Verified 08/02/17 06:40 of the Muscles - Respiratory Orders Smoking Cessation: Smoking cessation has been advised. For more information, call the [place] Quit Line at 4-144-NGFS-NOW. - Lab Orders Lab Orders: Other (include drug levels w/frequency) (BMP Q48 hours x 3 tests - monitor renal function closely - patient recovering from WINTER; RESUME Cozaar and Spironolactone and Hydrochlorathizide when SCr returns to baseline (1.26)) - Ancillary Orders May use pressure relief devices daily prn - Mobility Orders Chair, Ambulate - Rehabiliation Orders Rehab Potential: Good Rehab Orders: Evaluation for Physical Therapy, Evaluation for Occupational Therapy Other: Total Knee replacement Precautions x 6 weeks Apply cold therapy wrap 3-6x/day for 20 minutes at a time. Encourage ambulation throughout the day and incentive spirometer 10x/hour. Elevate affected extremity above heart as tolerated. Brace: Wear knee immobilizer at night x 2 weeks. - Treatments Skin tear care topically daily PRN per policy List/Other: Opsite placed. Keep dressing intact until first follow up appointment. If greater than 50% saturated, notify office, remove dressing and place appropriate dressing back in place. Leave Zipline/[place] intact. Opsite dressing is water resistant, not water-proof. OK to shower, but do not get dressing wet. - Diet Orders Regular CERTIFICATION: I certify that the transfer of the above named patient to an Extended Care Facility is necessary for the continuing treatment of the diagnosis listed. The above information is true and accurate reflection of patient's current condition. Confidential - Redisclosure prohibited without a patient's written consent.
--- NOTE | 2017-08-05 14:31 | Internal Med Progress Note ---
Date of Encounter: 08/05/17 Time of Encounter: 14:28 - Assessment and plan (1) Acute kidney injury Current Visit: Yes Status: Acute Assessment and plan: Baseline serum creatinine noted to be around 1.2; she probably does have CKD- stage 3. Serum creatinine worsened during hospitalization likely due to urinary retention and blood loss anemia in the setting of diuretic/ARB; currently improved to 1.42; Currently voiding on her own; continue to hold Metformin, Losartan/HCTZ, Spironolactone for 3 more days, repeat BMP in 3 days, and restart meds if serum creatinine is stable; BP is well-controlled; Patient is medically stable for discharge, per Primary service; Thank you for the Consult. (2) Acute blood loss anemia Current Visit: Yes Status: Acute Assessment and plan: Secondary to blood loss during surgery. Almost 5g drop in Hb from baseline of around 12-13, improved to 10 today, s/p 2units PRBC transfusion; she denies symptoms of anemia. - Time Spent With Patient Total time spent is greater than 50% in coordination of care (as documented) at patient's floor/unit and/or counseling patient: - Subjective Interval history: Feels well; pain in both her knees, somewhat improved with PO meds and ice packs ; participates in PT; - Constitutional Vitals: Temp Pulse Resp BP Pulse Ox 98.5 F 73 16 114/68 97 08/05/17 10:20 08/05/17 10:20 08/05/17 10:20 08/05/17 10:20 08/05/17 10:20 General appearance: Present: cooperative, A&O X 3, morbidly obese, answers questions appropriately - Respiratory Respiratory exam: Present: CTAB. Absent: accessory muscle use, rales, rhonchi, wheezes - Cardiovascular Cardiovascular exam: Present: RRR, +S1, +S2. Absent: diastolic murmur, gallop, rubs, systolic murmur - GI/Abdominal GI/Abdominal exam: Present: normal bowel sounds, soft (obese), no peritoneal signs. Absent: distended, tenderness Internal Medicine: Result - Labs CBC & Chem 7: 08/05/17 01:04 08/05/17 01:04 Labs: Short CBC 08/05/17 Range/Units 01:04 WBC 13.8 H (4.3-11.1) K/mcL Hgb 10.0 L D (11.5-15.4) g/dL Hct 30.7 L (35.3-44.9) % Plt Count 200 (140-400) K/mcL Neutrophils # 11.2 H (1.6-8.9) K/mcL BMP 08/04/17 08/05/17 14:39 01:04 Sodium 136 136 Potassium 4.9 4.8 Chloride 107 107 Carbon Dioxide 22 L 20 L BUN 57 H 57 H Creatinine 1.74 H 1.42 H Glucose 114 H 133 H Calcium 8.8 8.9 - VTE Documentation of Mechanical Device: Intermittent pneumatic compression device Consult Discharge Plan - Plan Referrals: Robin Easley DO [Primary Care Provider] -
[2017-08-06] MEDS ORDERED: *HR* Enoxaparin 40 MG/0.4 ML SYRINGE SQ SCH (09:00)
== END 2017-08-05 17:09 | DRG 461 ==
LOC: SAMDAY 06:19 → 3NENU 11:39
PROVIDERS: ADMIT Orthopaedic Surgery; ATTEND Orthopaedic Surgery